=== PATIENT | male | born 1950 | race Caucasian/White ===

== ENCOUNTER 2022-07-12 17:02 | Emergency (ER) | payer MEDICARE, OTHER ==
[2022-07-12 18:20] LABS: BASOPHIL 0.2 % (0-2); EOSINOPHIL 0.7 % (0-7); HCT 43.8 % (42.0-52.0); HGB 14.7 g/dl (13.2-18.0); LYMPHOCYTE 18.1 % (15-48); MCH 28.8 pg (25.0-31.0); MCHC 33.6 g/dL (32.0-36.0); MCV 85.7 fL (78.0-100.0); MONOCYTE 8.2 % (0-12); MPV 8.5 fL (6.0-9.5); NEUTROPHIL 72.5 % (41-80); NRBC 0; PLT 386 K/uL (150-400); RBC 5.11 M/uL (4.70-6.00); RDW 13.6 % (11.5-14.0); WBC 10.1 K/uL (4.0-10.5)
[2022-07-12 18:24] LABS: PROTHROMBIN TIME 12.9 SECONDS (11.9-13.9); PTT 23.3 SECONDS (24.9-34.6)
[2022-07-12 18:32] LABS: ALBUMIN 4.4 g/dL (3.4-5.0); BILIRUBIN - TOTAL 1.3 mg/dL (0.2-1.0); BUN/CREAT RATIO (CALC) 24.2 RATIO; CREATININE 1.2 mg/dL (0.67-1.17); GLOBULIN (CALCULATION) 3.6 g/dL; POTASSIUM 4.2 mmol/L (3.5-5.1)
[2022-07-12 18:58] LABS: CORONAVIRUS 2019 SARS-COV-2 NEGATIVE (NEGATIVE); INFLUENZA A NAA NEGATIVE (NEGATIVE)
[2022-07-12 19:03] LABS: BILIRUBIN 1+ mg/dL (NEGATIVE); BLOOD NEGATIVE Ery/uL (NEGATIVE); CLARITY CLEAR (CLEAR); COLOR YELLOW (YELLOW); GLUCOSE (U) NORMAL (NORMAL); LEUKOCYTES NEGATIVE Leu/uL (NEGATIVE); NITRITE NEGATIVE (NEGATIVE); PROTEIN 1+ mg/dL (NEGATIVE); SPECIFIC GRAVITY >=1.030 (1.001-1.030); UROBILINOGEN 0.2 mg/dL (0.2-1.0); pH 5.5 (5.0-9.0)
[2022-07-12 19:08] LABS: BACTERIA TRACE; URINARY RBC RARE
[2022-07-12] MEDS ORDERED: ONDANSETRON ODT4 MG PO (19:22)
== END 2022-07-12 20:00 | disposition home or self-care (01) ==
LOC: FER 17:02
PROVIDERS: Internal Medicine
DX: R10.11 Right upper quadrant pain (principal); R10.31 Right lower quadrant pain; E11.9 Type 2 diabetes mellitus without complications; Z20.822 Contact with and (suspected) exposure to COVID-19; Z88.5 Allergy status to narcotic agent; Z88.8 Allergy status to other drugs, medicaments and biological substances
CPT/HCPCS: 36415; 80053; 81001; 83690; 84484; 85025; 85610; 85730; 93005; J1170; J2405; J7030; U0002